=== PATIENT | male | born 1985 | race Caucasian/White ===

== ENCOUNTER 2020-07-25 09:12 | Emergency (ER) | payer MEDICAID, SELFPAY ==
[2020-07-25 09:29] VITALS: BP 122/77; PULSE 66; RESP 20; TEMP 36.1; O2SAT 100; BMI 58.6
--- NOTE | 2020-07-25 09:35 | XR_ITS ---
EXAMINATION: XR TOES, LEFT CLINICAL INFORMATION: Great toe pain after trauma COMPARISON: None TECHNIQUE: 3 views of the left toes were obtained. FINDINGS: Bones have normal alignment throughout the foot and joint spaces are maintained. At the medial base of the distal phalanx of the great toe, there is a small, less than 0.2 cm calcification and small lucency, suspicious for a nondisplaced fracture, since this corresponds to the region of patient's pain. Mild soft tissue swelling in this region. There are no large or displaced fractures in the foot. No radiopaque foreign body. XR/XR toe LT min 2V IMPRESSION: Possible very small, nondisplaced cortical fracture near the lateral base of the distal phalanx of the great toe.
--- NOTE | 2020-07-25 09:35 | ED_ITS ---
HPI - Back Pain/Injury General Chief Complaint: Back Pain/Injury Stated Complaint: BACK PAIN Time Seen by Provider: 07/25/20 09:31 Source: patient Mode of arrival: ambulatory Limitations: language barrier History of Present Illness HPI Narrative: 34 y/o male presents with lower back pain since yesterday and left great toe pain after he dropped a heavy box of tile onto it. 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 He states he woke up yesterday with a sore mid-lower back on both sides, that he noticed when he got out of bed. He proceeded to go to work and had worsening pain throughout the day the more lifting he did. He denies any specific injury or trauma. Denies numbness, tingling, incontinence, weakness, difficulty ambualting. MD elicited complaint: back pain Onset (ago): day(s) (1) Timing: constant Severity: moderate Similar Symptoms Previously: No Quality: aching and spasming Location: right lower back and left lower back Radiation: none Exacerbating factors: movement, coughing/sneezing and lifting Relieving factors: immobilization Context: while lifting and turning/twisting Associated symptoms: denies other symptoms Work related injury: Yes Related Data Previous Rx's Medication Instructions Recorded cyclobenzaprine 10 mg PO TID PRN #15 tab 07/25/20 ibuprofen 600 mg PO Q8H PRN #20 tab 07/25/20 lidocaine [Lidoderm] 1 patch TOPICAL DAILY #15 ea 07/25/20 Allergies Allergy/AdvReac Type Severity Reaction Status Date / Time No Known Allergies Allergy Unverified 07/25/20 09:35 Review of Systems Review of Systems: Constitutional: No Fever, No Chills Gastrointestinal: No Nausea, No Vomiting, No Diarrhea, No abdominal Pain Genitourinary: No Dysuria, No Urinary Frequency, No Hematuria Musculoskeletal: + joint pain (left great toe), + Myalgias (low/mid back) Skin: No Skin Lesions, No rash Neuro: No Weakness, No Numbness PMFSH Past Medical History Medical History (Updated 07/25/20 @ 10:58 by NA Kauffman) No known health problems Social History Social History Advance Directives: No Advance Directives Information Provided: No Physical Exam Vital Signs: Vital Signs: Last Vital Signs Temp 97.0 F 07/25/20 09:29 Pulse 66 07/25/20 09:29 Resp 20 07/25/20 09:29 BP 122/77 07/25/20 09:29 Pulse Ox 100 07/25/20 09:29 Body Mass Index 58.6 Appearance: Alert. Oriented X3. No acute distress. HEENT: normal inspection Respiratory: No respiratory distress. Skin: Skin warm and dry. Normal skin color. Normal skin turgor. No rashes. Back: soft tissue tenderness upper lumbar and lower thoracic areas with spasm L>R. limited flexion of spine due to pain. Extremities: No LE edema, left great toe with mild swelling and small area of ecchymosis, mildly tender. NV intact Neuro: Oriented X 3. No motor deficit. No sensory deficit. Course Course Course Narrative: 34 y/o male with back pain and traumatic toe pain. XR pending to r/o toe fracture. exam is consistent with muscular spasm. no red flags of LBP. no IVDA. will treat with muscle relaxer, NSAID, and lidoderm patch. Proper back/lifting mechanics discussed. He is off of work for the next 10 days to allow this to heal. Reevaluation(s) Reevaluation #1: XR shows possible small nondisplaced fx of proximal great toe. Conservative management discussed. Stable for d/c. MDM - Back Pain/Injury Differential Diagnosis Differential diagnosis: Likely lumbar radiculopathy, sciatica, strain of lumbar region, pyelonephritis and thoracic back pain Critical Care Time Critical Care Time Critical Care Time: No Discharge Plan Discharge Clinical Impression: Strain of lumbar region Qualifiers: Encounter type: initial encounter Qualified Code(s): S39.012A - Strain of muscle, fascia and tendon of lower back, initial encounter Closed fracture of toe Qualifiers: Encounter type: initial encounter Toe: great toe Phalanx: distal Fracture alignment: nondisplaced Laterality: left Qualified Code(s): S92.425A - Nondisplaced fracture of distal phalanx of left great toe, initial encounter for closed fracture Patient Disposition: Home, Self-Care Instructions: Back Pain (ED), Lower Back Exercises (ED) Additional Instructions: Your x-ray today showed a possible very small fracture of your big toe. Symptomatic management with rest, ice, and comfortable shoes. You may bear weight as tolerated. Limit bending, lifting >10 lbs, and twisting motions. Take prescribed medications as needed for pain/discomfort. Use ice and/or heat several times per day to the area. Rest, no strenuous activity. If you develop worsening pain, numbness, tinging, urinary incontinence, or loss of function call 911 or come back to the ER for further evaluation. Prescriptions: New cyclobenzaprine 10 mg tablet 10 mg PO TID PRN (Reason: muscle spasm) Qty: 15 RF: 0 lidocaine [Lidoderm] 5 % adhesive patch,medicated 1 patch topical DAILY Qty: 15 RF: 0 ibuprofen 600 mg tablet 600 mg PO Q8H PRN (Reason: pain) Qty: 20 RF: 0 Stand Alone Forms: Work/School Release Interventions: ED Discharge Assessment Last Done: 07/25/20 11:13 Discharge Date/Time: 07/25/20 11:13 Print Language: Maori
== END 2020-07-25 11:13 | disposition home or self-care (01) ==
PROVIDERS: Emergency Provider Internal Medicine; PCP Internal Medicine
DX: S92.425A Nondisplaced fracture of distal phalanx of left great toe, initial encounter for closed fracture (principal); S39.012A Strain of muscle, fascia and tendon of lower back, initial encounter; M79.675 Pain in left toe(s); Y29.XXXA Contact with blunt object, undetermined intent, initial encounter; Y93.9 Activity, unspecified; Y92.9 Unspecified place or not applicable; Y99.9 Unspecified external cause status
CPT/HCPCS: 73660; 99283

== ENCOUNTER 2021-03-18 05:48 | Emergency (ER) | payer MEDICAID, SELFPAY ==
--- NOTE | ~2021-03-18 | CT_ITS ---
EXAMINATION: CT CERVICAL SPINE WITHOUT CONTRAST; UNENHANCED CT OF THE HEAD. CLINICAL INFORMATION: Trauma COMPARISON: None TECHNIQUE: Routine unenhanced CT of the head with multiple coronal and sagittal reformatted images; routine unenhanced CT of the cervical spine with multiple coronal and sagittal reformatted images. This CT examination was performed using dose optimization techniques as appropriate, variously including the following: *Automated exposure control *Adjustment of mA and/or kV according to patient size (this includes techniques or standardized protocols for targeted exams where dose is matched to indication/reason for exam; i.e. extremities or head) *Use of iterative reconstruction technique DLP: 1171 mGy-cm FINDINGS: CT head: No intracranial hemorrhage, tumors or acute infarcts are noted. The ventricles and sulci are normal in size and configuration. No focal parenchymal lesions of the brain are identified. The orbits and globes are normal in appearance. No significant opacification of the visualized paranasal sinuses, mastoid air cells and middle ear cavities is identified. CT cervical spine: No fractures or acute appearing subluxations are noted. At C5-C6, partial visualization is made of a moderate posterior broad-based disc-osteophyte complex. No gross facet arthropathic changes are identified. No prevertebral soft tissue fluid collections or inflammatory changes are noted. The thyroid is grossly normal in appearance. The lung apices are minimally visualized. CT/CT head/brain wo con IMPRESSION: CT head: 1. Normal. CT cervical spine: 1. No acute abnormalities. 2. C5-C6 chronic spondylosis characterized by a partially visualized moderate posterior broad-based disc-osteophyte complex.
--- NOTE | ~2021-03-18 | CT_ITS ---
EXAMINATION: CT CERVICAL SPINE WITHOUT CONTRAST; UNENHANCED CT OF THE HEAD. CLINICAL INFORMATION: Trauma COMPARISON: None TECHNIQUE: Routine unenhanced CT of the head with multiple coronal and sagittal reformatted images; routine unenhanced CT of the cervical spine with multiple coronal and sagittal reformatted images. This CT examination was performed using dose optimization techniques as appropriate, variously including the following: *Automated exposure control *Adjustment of mA and/or kV according to patient size (this includes techniques or standardized protocols for targeted exams where dose is matched to indication/reason for exam; i.e. extremities or head) *Use of iterative reconstruction technique DLP: 1171 mGy-cm FINDINGS: CT head: No intracranial hemorrhage, tumors or acute infarcts are noted. The ventricles and sulci are normal in size and configuration. No focal parenchymal lesions of the brain are identified. The orbits and globes are normal in appearance. No significant opacification of the visualized paranasal sinuses, mastoid air cells and middle ear cavities is identified. CT cervical spine: No fractures or acute appearing subluxations are noted. At C5-C6, partial visualization is made of a moderate posterior broad-based disc-osteophyte complex. No gross facet arthropathic changes are identified. No prevertebral soft tissue fluid collections or inflammatory changes are noted. The thyroid is grossly normal in appearance. The lung apices are minimally visualized. CT/CT cervical spine wo con IMPRESSION: CT head: 1. Normal. CT cervical spine: 1. No acute abnormalities. 2. C5-C6 chronic spondylosis characterized by a partially visualized moderate posterior broad-based disc-osteophyte complex.
[2021-03-18 06:11] VITALS: BP 140/92; PULSE 76; RESP 16; TEMP 37; O2SAT 100; BMI 28.8
--- NOTE | 2021-03-18 07:05 | ED_ITS ---
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 Patient denies loss of consciousness positive dizziness positive extreme pain. Came in because worsening pain. No fever no chills. Positive coughing upper respiratory symptoms patient did not take his coronavirus vaccine. Patient denies any nausea vomiting. Denies any focal weakness. Patient's was working at the time. Related Data Previous Rx's Medication Instructions Recorded cyclobenzaprine 10 mg PO TID PRN #15 tab 07/25/20 ibuprofen 600 mg PO Q8H PRN #20 tab 07/25/20 lidocaine [Lidoderm] 1 patch TOPICAL DAILY #15 ea 07/25/20 Allergies Allergy/AdvReac Type Severity Reaction Status Date / Time No Known Allergies Allergy Unverified 07/25/20 09:35 Review of Systems Review of Systems: No fever no chills no chest pain Positive coughing upper respiratory symptoms Positive headache No vomiting No focal weakness Yes all other systems are reviewed and are negative [facility] Past Medical History Attestation statement: The following information was validated with the patient. Medical History No known health problems Social History Social History Advance Directives: No Advance Directives Information Provided: Yes Physical Exam Vital Signs: Vital Signs: Last Vital Signs Temp 98.6 F 03/18/21 06:11 Pulse 76 03/18/21 06:11 Resp 16 03/18/21 06:11 BP 140/92 H 03/18/21 06:11 Pulse Ox 100 03/18/21 06:11 Body Mass Index 28.8 Appearance: Alert. Oriented X3. No acute distress. Eyes: Pupils equal, round and reactive to light. ENT: Pharynx normal. Neck: Normal inspection. Neck supple. No lymph nodes noted. No crepitus CVS: Normal heart rate and rhythm. Pulses normal. Normal S1 and S2 Respiratory: No respiratory distress. Breath sounds normal. No Wheezing. No rales Abdomen: Soft and nontender. No rigidity. No distention. good BS x4 Skin: Skin warm and dry. Normal skin color. Normal skin turgor. Extremities: No lower extremity edema. Neurovascular intact to all extremities. No Lacerations. No Rash Neuro: Oriented X 3. No motor deficit. No sensory deficit. Moving all extermities. No slurred speech MDM - Head Injury MDM Narrative Medical decision making narrative: CT head and C-spine grossly negative for any acute evidence of bleeding no fracture. Will discharge patient home. Patient's COVID test was negative. In stable condition head injury precautions. Medical Records Attestation: I reviewed the patient's medical records. Lab Data Attestation: I reviewed the patient's lab results. Labs: Lab Results 03/18/21 Range/Units 07:24 COVID-19 ([facility]) Negative (Negative) COVID-19 Clin Com See Note Discharge Plan Discharge Clinical Impression: Closed head injury Patient Disposition: Home, Self-Care Instructions: Head Injury (ED) Prescriptions: No Action cyclobenzaprine 10 mg tablet 10 mg PO TID PRN (Reason: muscle spasm) Qty: 15 RF: 0 lidocaine [Lidoderm] 5 % adhesive patch,medicated 1 patch topical DAILY Qty: 15 RF: 0 ibuprofen 600 mg tablet 600 mg PO Q8H PRN (Reason: pain) Qty: 20 RF: 0 Referrals: Jelani Sanchez DO, MD [Primary Care Provider] - 2 days
[2021-03-18 07:47] LABS: COVID-19 Test Negative (Negative)
[2021-03-18 08:10] VITALS: BP 119/87; PULSE 64
== END 2021-03-18 08:28 | disposition home or self-care (01) ==
PROVIDERS: Emergency Provider Emergency Medicine Emergency Medical Services; PCP Internal Medicine
DX: S09.90XA Unspecified injury of head, initial encounter (principal); W20.8XXA Other cause of strike by thrown, projected or falling object, initial encounter; Y93.89 Activity, other specified; Y92.512 Supermarket, store or market as the place of occurrence of the external cause; Y99.0 Civilian activity done for income or pay; Z20.822 Contact with and (suspected) exposure to COVID-19; R05 Cough
CPT/HCPCS: 36415; 70450; 72125; 87635; 99284

== ENCOUNTER 2023-01-25 20:57 | Emergency (ER) | payer MEDICAID, SELFPAY ==
[2023-01-25 21:08] VITALS: BP 141/106; PULSE 87; RESP 16; TEMP 36.6; O2SAT 98; BMI 27.9
[2023-01-26] MEDS: hydrOXYzine HCL 25 MG TABLET PO (01:10)
--- NOTE | 2023-01-26 01:18 | ED.GENADULT ---
HPI - General Adult General Chief complaint: Anxiety Stated complaint: Anxiety/panic attack Time Seen by Provider: 01/26/23 00:49 Source: patient, family and RN notes reviewed Limitations: language barrier (family interpreting) History of Present Illness HPI narrative: 37-year-old male presents for evaluation of anxiety. Patient reports that he was at work and ?something fell from the ceiling and almost hit him in the leg but did not. ? Since then the patient had a panic attack. He began hyperventilating became nauseous and vomiting He was crying because he was thinking that he could have At home he continued to have similar episodes so presented to the ER for evaluation To be clear, the patient was not actually injured from anything at work today He has no other complaints or concerns at this time Related Data Previous Rx's Medication Instructions Recorded cyclobenzaprine 10 mg tablet 10 mg PO TID PRN muscle spasm #15 07/25/20 tabs ibuprofen 600 mg tablet 600 mg PO Q8H PRN pain #20 tabs 07/25/20 lidocaine 5 % topical patch 1 patch topical DAILY #15 ea 07/25/20 (Lidoderm) hydroxyzine HCl 25 mg tablet 25 mg PO TID PRN anxiety #20 tabs 01/26/23 Allergies Allergy/AdvReac Type Severity Reaction Status Date / Time No Known Allergies Allergy Verified 01/25/23 21:07 Review of Systems Psychiatric: Psychiatric: Reports anxiety and Reports panic attacks PMFSH Past Medical History Medical History No known health problems Social History Social History Alcohol intake: unknown Advance Directives: No Advance Directives Information Provided: Yes Physical Exam ED Vital Signs: Vital Signs - 24 hr 01/25/23 21:08 Temperature 97.9 F Pulse Rate 87 Respiratory Rate 16 Blood Pressure 141/106 H Pulse Oximetry 98 Oxygen Delivery Method Room Air BMI result Body Mass Index 27.9 Const General: healthy appearing, comfortable, no acute distress, alert and awake Nutritional Appearance: well nourished Orientation/consciousness: patient oriented x3 HENMT Head: Yes normocephalic and Yes atraumatic Eyes Eyelids: Yes eyelids normal Conjunctivae: conjunctivae normal Sclerae: sclerae normal Corneas: corneas normal Pupils: Equal, round and reactive pupils present EOM: EOMs intact bilaterally Neck Neck: Yes full ROM Resp Effort & Inspection: normal respiratory effort, able to speak in complete sentences, no audible wheezes and not labored Auscultation: clear to auscultation bilaterally Cardio Rate: regular rate Rhythm: regular rhythm Skin General skin exam: no rashes or lesions noted and elasticity normal Neuro General: patient oriented x3 Cranial nerves: Yes Equal, round and reactive pupils present and Yes Bilaterally intact EOM present Cognition (Neuro): normal cognition Extrem Other: Moving all extremities well without any obvious deformities Medications Administered Discontinued Medications Generic Name Dose Route Start Last Admin Trade Name Freq PRN Reason Stop Dose Admin Hydroxyzine HCl 25 mg 01/26/23 01:05 01/26/23 01:10 Hydroxyzine Hcl 25 Mg Tablet PO 01/26/23 01:06 25 mg ONCE ONE Administration Medical Decision Making Medical Decision Making MDM Narrative: 37-year-old male presents for evaluation of anxiety. He denies any history of anxiety. He had a stressful situation at work when he was nearly injured but was not injured in any way. Will treat him with hydroxyzine and discharged home with a short prescription of same Differential Diagnosis Anxiety ACS Mood disorder Panic disorder Discharge Plan Discharge Clinical Impression: Acute anxiety Patient Disposition: Home, Self-Care Instructions: Anxiety (ED) Additional Instructions: Use hydroxyzine as needed for anxiety Follow-up with your primary doctor Prescriptions: New hydroxyzine HCl 25 mg tablet 25 mg PO TID PRN (Reason: anxiety) Qty: 20 0RF No Action cyclobenzaprine 10 mg tablet 10 mg PO TID PRN (Reason: muscle spasm) Qty: 15 0RF lidocaine [Lidoderm] 5 % adhesive patch,medicated 1 patch topical DAILY Qty: 15 0RF Rx Instructions: leave on most painful area for up to 12 hrs ibuprofen 600 mg tablet 600 mg PO Q8H PRN (Reason: pain) Qty: 20 0RF Stand Alone Forms: Work/School Release
[2023-01-26 01:36] VITALS: BP 138/93; PULSE 80; RESP 14; TEMP 36.7; O2SAT 99
--- NOTE | 2023-01-26 01:37 | PC.NURSE ---
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
--- NOTE | 2023-01-26 01:39 | PC.NURSE ---
Discharge instructions given and explained to pt No apparent distress ambulates safely independently [id number]
== END 2023-01-26 01:39 | disposition home or self-care (01) ==
PROVIDERS: Emergency Provider Internal Medicine
DX: F41.1 Generalized anxiety disorder (principal); F43.0 Acute stress reaction; F41.0 Panic disorder [episodic paroxysmal anxiety]; F43.9 Reaction to severe stress, unspecified; Z79.899 Other long term (current) drug therapy
CPT/HCPCS: 99283; 99284

== ENCOUNTER 2023-07-24 14:18 | Emergency (ER) | payer MEDICAID, SELFPAY ==
--- NOTE | ~2023-07-24 | US_ITS ---
EXAMINATION: US VENOUS ULTRASOUND WITH DOPPLER LOWER EXTREMITY, RIGHT CLINICAL INFORMATION: Right calf pain. COMPARISON: None available. TECHNIQUE: Ultrasound of the deep veins is performed from the hip to the calf with compression sonography and color and pulse Doppler assessment. Spectral analysis with color-flow imaging is performed. FINDINGS: There is normal venous compression and respiratory variation and augmented flow. The visualized common femoral vein, superficial femoral vein, profunda femoral vein, popliteal vein, and the trifurcation region shows no evidence of deep venous thrombosis. There is no significant popliteal fossa cyst. If the patient's symptoms persist, followup ultrasound in 5 days 7 days might be of value to exclude proximal propagation from a non-visualized calf vein. US/US venous duplex LE RT IMPRESSION: No DVT demonstrated in the right lower extremity.
[2023-07-24 14:32] VITALS: BP 143/79; PULSE 91; RESP 18; TEMP 37.1; O2SAT 98; BMI 30.8
--- NOTE | 2023-07-24 14:32 | ED.GENADULT ---
HPI - General Adult General Stated complaint: R leg pain Related Data Previous Rx's Medication Instructions Recorded cyclobenzaprine 10 mg tablet 10 mg PO TID PRN muscle spasm #15 07/25/20 tabs ibuprofen 600 mg tablet 600 mg PO Q8H PRN pain #20 tabs 07/25/20 lidocaine 5 % topical patch 1 patch topical DAILY #15 ea 07/25/20 (Lidoderm) hydroxyzine HCl 25 mg tablet 25 mg PO TID PRN anxiety #20 tabs 01/26/23 Allergies Allergy/AdvReac Type Severity Reaction Status Date / Time No Known Allergies Allergy Verified 01/25/23 21:07 [facility] Past Medical History Medical History No known health problems Social History Alcohol intake: never Course Course Course Narrative: This is a rapid medical exam. Deferred additional HPI, ROS, PE to primary provider. 37 yo male with no medical history here with complaints of right calf pain radiating to posterior thigh x 1 week with no known or injury. Unable to visualize in triage, Will obtain US VSS Discharge Plan Discharge Prescriptions: No Action cyclobenzaprine 10 mg tablet 10 mg PO TID PRN (Reason: muscle spasm) Qty: 15 0RF lidocaine [Lidoderm] 5 % adhesive patch,medicated 1 patch topical DAILY Qty: 15 0RF Rx Instructions: leave on most painful area for up to 12 hrs ibuprofen 600 mg tablet 600 mg PO Q8H PRN (Reason: pain) Qty: 20 0RF hydroxyzine HCl 25 mg tablet 25 mg PO TID PRN (Reason: anxiety) Qty: 20 0RF
--- NOTE | 2023-07-24 17:55 | ED_ITS ---
HPI - Extremity Injury (Lower) General Chief Complaint: Extremity Injury, Lower Stated Complaint: R leg pain Time Seen by Provider: 07/24/23 17:01 Source: patient Mode of arrival: ambulatory Limitations: no limitations History of Present Illness HPI Narrative: This is a 37-year-old male presenting to the emergency department for evaluation of right-sided lower extremity pain that originates in his hamstring and goes down his into her leg, patient reports he was recently not working for a while and he recently started work, he reports he walks very fast/rounds at work, since then has been having discomfort that has been worsening. Worse with ambulation better at rest. No associated back pain, nausea, vomiting, abdominal pain, fevers, chills, urinary/bowel incontinence/retention, chest pain, shortness of breath. No history of DVT. Not on blood thinners. Related Data Previous Rx's Medication Instructions Recorded cyclobenzaprine 10 mg tablet 10 mg PO TID PRN muscle spasm #15 07/25/20 tabs ibuprofen 600 mg tablet 600 mg PO Q8H PRN pain #20 tabs 07/25/20 lidocaine 5 % topical patch 1 patch topical DAILY #15 ea 07/25/20 (Lidoderm) hydroxyzine HCl 25 mg tablet 25 mg PO TID PRN anxiety #20 tabs 01/26/23 cyclobenzaprine 10 mg tablet 10 mg PO BEDTIME PRN muscle spasm 07/24/23 #7 tabs ketorolac 10 mg tablet 10 mg PO TID PRN pain 5 days #15 07/24/23 tabs Allergies Allergy/AdvReac Type Severity Reaction Status Date / Time No Known Allergies Allergy Verified 01/25/23 21:07 Review of Systems Review of Systems: Constitutional : No Weight loss, No Fever, No Chills, No Fatigue, No Malaise ENT/Mouth : No sore throat, No Rhinorrhea Eyes: No Eye Pain, No Swelling, No Redness Cardiovascular : No Chest Pain, No SOB, No Dyspnea on Exertion, No Orthopnea, No Edema, No Palpitations Respiratory : No Cough, No Sputum, No Wheezing Gastrointestinal : No Nausea, No Vomiting, No Diarrhea, No Constipation, No abdominal Pain, No Hematochezia, No Melena Genitourinary : No Dysuria, No Urinary Frequency, No Hematuria, Musculoskeletal : No joint pain, No Myalgias, No Joint Swelling, +RLE pain Skin : No Skin Lesions, No rash Neuro : No Weakness, No Numbness, No Dizziness, No Headache Psych : No Anxiety/Panic, No Depression All other systems reviewed and are negative Yes all other systems are reviewed and are negative [facility] Past Medical History Attestation statement: The following information was validated with the patient. Source: old records reviewed and nursing notes reviewed Medical History No known health problems Social History Alcohol intake: never Advance Directives: No Advance Directives Information Provided: No Physical Exam Vital Signs: Vital Signs: Last Vital Signs Temp 98.7 F 07/24/23 14:32 Pulse 91 07/24/23 14:32 Resp 18 07/24/23 14:32 BP 143/79 H 07/24/23 14:32 Pulse Ox 98 07/24/23 14:32 O2 Del Method Room Air 07/24/23 14:32 BMI result Body Mass Index 30.8 vss Appearance: Alert.? Oriented X3.? No acute distress.? Head: Normocephalic, atraumatic, no step-offs or deformities Eyes: Pupils equal, round and reactive to light.? ENT: Pharynx normal.? Neck: Normal inspection.? Neck supple.? CVS: Normal heart rate and rhythm.? Pulses normal.? Respiratory: No respiratory distress.? Breath sounds normal.? Abdomen: Soft and nontender.? Skin: Skin warm and dry.? Normal skin color.? Normal skin turgor.? Extremities: No lower extremity edema.? No calf ttp. 5/5 strength to bilateral upper and lower extremities + tenderness to palpation to posterior aspect of right hamstring. 2+ dorsalis pedis, anterior tibialis, posterior tibialis and popliteal pulses equal bilateral. Normal strength bilaterally to lower extremities. Normal sensation distally Neuro: Oriented X 3.? No motor deficit.? No sensory deficit. CN 2-12 intact Course Reevaluation(s) Reevaluation #1: Patient's ultrasound no DVT demonstrated in right lower extremity. Will discharge home on Toradol, cyclobenzaprine. Educated patient on diagnosis and treatment plan, answered all question, patient verbalizes understanding. At this time patient will be discharged home, advised to return with new or worsening symptoms. Educated on worrisome signs and symptoms and when to return. At this time I feel comfortable discharge home. Time: 17:58 Medical Decision Making Medical Decision Making [facility] Narrative: 1750 37-year-old male presents with pain to his right hamstring that radiates down right lower extremity, started about a week ago attributes this to fast walking/running at work. No trauma. History of DVT Physical exam tenderness to palpation to posterior aspect of right hamstring. 2+ dorsalis pedis, anterior tibialis, posterior tibialis and popliteal pulses equal bilateral. Normal strength bilaterally to lower extremities. Normal sensation distally History and physical examination concerning for right hamstring sprain or strain. Unlikely DVT, arterial occlusion, threat to limber neurovascular compromise. Unlikely fracture dislocation. Unlikely tendon rupture. Plan DVT study ordered from triage Differential Diagnosis Differential Diagnoses: The differential diagnosis associated with the presentation includes History and physical examination concerning for right hamstring sprain or strain. Unlikely DVT, arterial occlusion, threat to limber neurovascular compromise. Unlikely fracture dislocation. Unlikely tendon rupture. Admission/Observation Consideration of admission/observation: Escalation of care including admission/observation considered Independent Interpretation I performed an independent interpretation of an: Ultrasound (US/US venous duplex LE RT IMPRESSION: No DVT demonstrated in the right lower extremity.) Radiology Impression Discussion of test interpretation with radiology: I have reviewed the radiologist's reading. Prescription Management I considered prescription management with: Pain Medication and Other (Cyclobenzaprine) Discharge Plan Discharge Clinical Impression: Right hamstring muscle strain Patient Disposition: Home, Self-Care Instructions: Muscle Strain (ED), Muscle Strain (DC), R.I.C.E. Treatment (ED) Additional Instructions: Take your medications as prescribed. If you were prescribed antibiotics today, it is important that you take your medication to their entirety, do not skip any doses, do not finish them early. Follow-up with your primary care provider this week. Follow-up with orthopedics team if needed Return to the emergency department with new or worsening symptoms. Such as fevers, chills, chest pain, shortness of breath, nausea, vomiting, dizziness, headache, vision changes, lethargy In case of emergency call 911 Toradol has been sent to your pharmacy, you tolerated this well in the department. Please take this as prescribed do not take this with ibuprofen, or other NSAIDs, do not mix this with alcohol. Side effects of this medication including increased risk for bleeding and possible kidney injury. Cyclobenzaprine as a muscle relaxer can make you sleepy, please do not mix with any sedatives, narcotics or alcohol. Do not drive or operate machinery while taking [place] evangelina medicamentos seg?n lo recetado. Si hoy te recetaron antibi?ticos, es importante que tomes tu medicaci?n en vee totalidad, no te saltes ninguna dosis, no las termines antes de tiempo. Kerri un seguimiento con vee proveedor de atenci?n primaria esta semana. Seguimiento con el equipo de ortopedia si es necesario. Regrese al departamento de emergencias si los s?ntomas son nuevos o empeoran. [place] fiebre, escalofr?os, dolor de pecho, dificultad para respirar, n?useas, v?mitos, mareos, dolor de юлия, cambios en la visi?n, letargo. En dereck de emergencia llame al 911. Toradol key sido enviado a vee farmacia, lo marycruz? lindsay en el departamento. T?[place] seg?n lo prescrito, no lo tome con ibuprofeno u otros KRUNAL, no lo mezcle con alcohol. Los efectos secundarios de rip medicamento incluyen un mayor riesgo de sangrado y posible lesi?n renal. La ciclobenzaprina soni relajante muscular puede provocar romel?o; no la mezcle con sedantes, narc?ticos ni alcohol. No conduzca ni opere maquinaria mientras roosevelt Prescriptions: New cyclobenzaprine 10 mg tablet 10 mg PO BEDTIME PRN (Reason: muscle spasm) Qty: 7 0RF ketorolac 10 mg tablet 10 mg PO TID PRN (Reason: pain) 5 Days Qty: 15 0RF No Action cyclobenzaprine 10 mg tablet 10 mg PO TID PRN (Reason: muscle spasm) Qty: 15 0RF lidocaine [Lidoderm] 5 % adhesive patch,medicated 1 patch topical DAILY Qty: 15 0RF Rx Instructions: leave on most painful area for up to 12 hrs ibuprofen 600 mg tablet 600 mg PO Q8H PRN (Reason: pain) Qty: 20 0RF hydroxyzine HCl 25 mg tablet 25 mg PO TID PRN (Reason: anxiety) Qty: 20 0RF Referrals: Jelani Sanchez DO, MD [Primary Care Provider] - 2 days
[2023-07-24] MEDS: Ketorolac Tromethamine 15 MG/ML VIAL 30 MG IM (18:19)
== END 2023-07-24 18:25 | disposition home or self-care (01) ==
PROVIDERS: Emergency Provider Emergency Medicine; PCP Internal Medicine
DX: S86.111A Strain of other muscle(s) and tendon(s) of posterior muscle group at lower leg level, right leg, initial encounter (principal); X58.XXXA Exposure to other specified factors, initial encounter; M79.661 Pain in right lower leg; Y93.9 Activity, unspecified; Y92.9 Unspecified place or not applicable; Y99.9 Unspecified external cause status
CPT/HCPCS: 93971; 96372; 99283; 99284; J1885

== ENCOUNTER 2023-07-28 18:48 | Emergency (ER) | payer MEDICAID, SELFPAY ==
--- NOTE | 2023-07-28 19:33 | ED.GENADULT ---
HPI - General Adult General Chief complaint: Extremity Injury, Lower Stated complaint: leg pain/muscle Source: patient Mode of arrival: ambulatory Limitations: no limitations History of Present Illness HPI narrative: Patient is a 37-year-old male presents emergency department for evaluation of persistent pain to the muscles of the right posterior leg. He was Evaluated in the ED on 07/24/23 had US which was negative, continues to have pain despite the use of Flexeril and ketorolac. Pain is worsening, he continues to work so he has not been able to rest. No overt injury. No numbness or tingling. He is asking for a work note for 1 week. Related Data Previous Rx's Medication Instructions Recorded cyclobenzaprine 10 mg tablet 10 mg PO TID PRN muscle spasm #15 07/25/20 tabs ibuprofen 600 mg tablet 600 mg PO Q8H PRN pain #20 tabs 07/25/20 lidocaine 5 % topical patch 1 patch topical DAILY #15 ea 07/25/20 (Lidoderm) hydroxyzine HCl 25 mg tablet 25 mg PO TID PRN anxiety #20 tabs 01/26/23 cyclobenzaprine 10 mg tablet 10 mg PO BEDTIME PRN muscle spasm 07/24/23 #7 tabs ketorolac 10 mg tablet 10 mg PO TID PRN pain 5 days #15 07/24/23 tabs oxycodone 5 mg tablet 5 mg PO Q6H PRN pain #10 tabs 07/28/23 Allergies Allergy/AdvReac Type Severity Reaction Status Date / Time No Known Allergies Allergy Verified 07/28/23 19:43 Review of Systems Review of Systems: Yes all other systems are reviewed and are negative [facility] Past Medical History Attestation statement: The following information was validated with the patient. Source: old records reviewed Medical History No known health problems Social History Social History Alcohol intake: never Physical Exam ED Appearance: Alert.?Oriented to person, place and time. No acute distress.?Normal affect. Eyes: Pupils equal, round and reactive to light.? ENT: Pharynx normal.?? Neck: Normal inspection.? Neck supple.?? CVS: Heart sounds normal. Normal heart rate and rhythm.? Pulses normal.?? Respiratory: No respiratory distress.? Lung sounds clear to auscultation bilaterally?? Abdomen: Soft and non-tender. Normoactive bowel sounds. N? Skin: Skin warm and dry.? Normal skin color.? Extremities: No lower extremity edema.? No calf ttp? Neuro: Moves all extremities spontaneously. Sensation intact bilaterally. CN II-XII intact. No focal neuro deficits. Ambulates with antalgic gait. Medical Decision Making Medical Decision Making [facility]DM Narrative: Patient is a 37-year-old male presents emergency department for evaluation of persistent pain to the muscles of the right posterior leg. Right lower extremity is neurovascularly intact distally. He was Evaluated in the ED on 07/24/23 had US which was negative, continues to have pain despite the use of Flexeril and ketorolac. Has not been resting the extremity. reiterated the importance of R.I.C.E., sent a short prescription for oxycodone to pharmacy, [facility] reviewed, no conflicts. No red flag symptoms. No deformity. Ambulatory and fully weight-bearing. Reviewed worrisome signs and symptoms that would warrant re-evaluation emergency department. Provided with a work note for 3 days, advised any further excuse note would need to come from primary care provider. Stable for discharge. Differential Diagnosis Differential Diagnoses: The differential diagnosis associated with the presentation includes (Recent ultrasound negative, no acute changes, unlikely DVT. no neurovascular compromise, unlikely vascular occlusion. No deformity or injury, unlikely fracture dislocation.) External Record Review External record reviewed: Outpatient record and Other ([facility]) Tests considered The following testing was considered but not selected: As noted above, XR/ultrasound deferred Prescription Management I considered prescription management with: Pain Medication Discharge Plan Discharge Clinical Impression: Hamstring muscle strain Patient Disposition: Home, Self-Care Instructions: Hamstring Injury (ED), R.I.C.E. Treatment (ED), Hamstring Exercises (ED) Additional Instructions: I've sent a prescription for oxycodone to your pharmacy. This is an opiate medication. It can be addictive. You can not drive, drink alcohol, or work while taking this medication. May make you drowsy. Do not take this medication in addition to the cyclobenzaprine your previously prescribed. As discussed, please contact your primary care doctor when the open Monday morning to arrange for follow-up. You may return back to emergency department any new or worsening symptoms or concerns. Envi? favian receta de oxicodona a vee farmacia. 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 Puede ser adictivo. No puede conducir, beber alcohol ni trabajar mientras est? tomando rip medicamento. Puede causarle somnolencia. No tome rip medicamento adem?s de la ciclobenzaprina que le recetaron anteriormente. Robert Lee se mencion?, comun?quese con vee m?dico de atenci?n primaria cuando est? abierto el lunes por la ma?tamara para programar un seguimiento. Puede regresar al departamento de emergencias si tiene s?ntomas o inquietudes nuevos o que empeoran. Prescriptions: New oxycodone 5 mg tablet 5 mg PO Q6H PRN (Reason: pain) Qty: 10 0RF Rx Instructions: Partial Fill upon patient request. No Action cyclobenzaprine 10 mg tablet 10 mg PO TID PRN (Reason: muscle spasm) Qty: 15 0RF lidocaine [Lidoderm] 5 % adhesive patch,medicated 1 patch topical DAILY Qty: 15 0RF Rx Instructions: leave on most painful area for up to 12 hrs ibuprofen 600 mg tablet 600 mg PO Q8H PRN (Reason: pain) Qty: 20 0RF hydroxyzine HCl 25 mg tablet 25 mg PO TID PRN (Reason: anxiety) Qty: 20 0RF cyclobenzaprine 10 mg tablet 10 mg PO BEDTIME PRN (Reason: muscle spasm) Qty: 7 0RF ketorolac 10 mg tablet 10 mg PO TID PRN (Reason: pain) 5 Days Qty: 15 0RF Referrals: Jelani Sanchez DO, MD [Primary Care Provider] - Stand Alone Forms: Work/School Release
[2023-07-28 19:39] VITALS: BP 124/88; PULSE 91; RESP 20; TEMP 36.7; O2SAT 98; BMI 32.3
--- NOTE | 2023-07-28 19:53 | PC.NURSE ---
pt discharge during triage, reviewed discharge instruction with pt. pt verbalized under standing,
== END 2023-07-28 19:57 | disposition home or self-care (01) ==
PROVIDERS: Emergency Provider Emergency Medicine; PCP Internal Medicine
DX: S76.911A Strain of unspecified muscles, fascia and tendons at thigh level, right thigh, initial encounter (principal); X58.XXXA Exposure to other specified factors, initial encounter; Y93.9 Activity, unspecified; Y92.9 Unspecified place or not applicable; Y99.9 Unspecified external cause status
CPT/HCPCS: 99283; 99284